=== PATIENT | male | born 1990 | race Caucasian/White ===

== ENCOUNTER 2018-03-02 22:33 | Emergency (ER) | payer SELFPAY ==
[2018-03-02] MEDS ORDERED: OMEP-125 PO (22:49)
[2018-03-02] MEDS ORDERED: LORA-799 PO (22:49)
--- NOTE | 2018-03-02 22:55 | ER Report ---
History and Physical Time Seen By MD: 22:55 Hx. of Stated Complaint: jhonny has had a cough for over a month, patient states has a neb he uses just to help so he can sleep. patient states coughing up blood. HPI/ROS CHIEF COMPLAINT: Cough, hemoptysis HISTORY OF PRESENT ILLNESS: 27-year-old male with a history of asthma, has been sick for several weeks. He's been having a productive cough of colored sputum and increased coughing and shortness of breath. He's been using his nebulizer frequently without improvement. He's been running some fever and chills. He also notes some hemoptysis, coughing up spots of blood. Patient to nonsmoker. Patient denies leg swelling or calf pain. Patient denies history of DVT or PE REVIEW OF SYSTEMS: Respiratory: As above Cardiovascular: No chest pain, no palpitations. Gastrointestinal: No vomiting, no abdominal pain. Musculoskeletal: No back pain. Allergies: Coded Allergies: amoxicillin (Verified Allergy, Intermediate, rash/hives, 03/02/18) animal dander (Verified Allergy, Intermediate, 03/02/18) Uncoded Allergies: dust (Allergy, Intermediate, 03/02/18) Home Meds Active Scripts Albuterol Sulfate (VENTOLIN HFA) 18 Gm Inh, 2 PUFF INH Q4-6H PRN for asthma, #1 INH 1 Refill Prov:IRENE NIEVES DO 03/02/18 Guaifenesin/Codeine Phosphate (GUAIFENESIN-CODEINE SYRUP) 10 Ml Liquid, 5-10 ML PO Q4H PRN for COUGH, #120 Prov:IRENE NIEVES DO 03/02/18 Prednisone (PREDNISONE) 20 Mg Tablet, 40 MG PO QDAY for reduce lung inflammation, #10 Prov:IRENE NIEVES DO 03/02/18 Azithromycin 250 Mg Tab (AZITHROMYCIN 250 MG TAB) 250 Mg Tablet, 0 PO QDAY for infection, #6 TAB TAKE 2 TABLETS ON DAY 1 AND 1 TABLET ON DAYS 2-5 Prov:IRENE NIEVES DO 03/02/18 Reported Medications Loratadine (CLARITIN) 10 Mg Tab.rapdis, 10 MG PO QDAY 03/02/18 Omeprazole (OMEPRAZOLE) 20 Mg Capsule., 1 CAP PO QDAY, CAP 03/02/18 Past Medical/Surgical History Asthma Reviewed Nurses Notes: Yes Old Medical Records Reviewed: Yes Constitutional Vital Sign - Last 24 Hours 03/02/18 03/02/18 03/02/18 03/02/18 22:45 22:48 23:00 23:03 Temp 98.4 Pulse 104 104 105 Resp 24 B/P (MAP) 151/125 125/101 (109) Pulse Ox 94 92 94 O2 Delivery Room Air 03/02/18 03/02/18 03/02/18 23:19 23:30 23:33 Pulse 108 B/P (MAP) 105/67 (80) 115/101 (106) Pulse Ox 92 Physical Exam General Appearance: The patient is alert, has no immediate need for airway protection and no current signs of toxicity.. Vital signs stable, afebrile, normal pulse ox HEENT: Pupils equal and round no injection. TMs normal, oropharynx mild erythema, no exudate Respiratory: Chest is non tender, lungs are clear to auscultation. Cardiac: regular rate and rhythm Gastrointestinal: Abdomen is soft and non tender, no masses, bowel sounds normal. Musculoskeletal: Neck: Neck is supple and non tender. Extremities have full range of motion and are non tender. Skin: No rashes or lesions. DIFFERENTIAL DIAGNOSIS: After history and physical exam differential diagnosis was considered for shortness of breath including but not limited to pulmonary infectious process, COPD, asthma, pulmonary embolus and congestive heart failure. Medical Decision Making EKG/Imaging Imaging X-ray: Two-view chest x-ray was obtained. I viewed the images myself on the PACS system. My interpretation of the images is: No infiltrate, no effusion, normal mediastinum. The radiologist interpretation had no clinically significant variation from this interpretation. ED Course/Re-evaluation ED Course Patient was admitted to an examination room. H&P was done. The differential diagnoses was considered. On clinical examination. Patient has an acute asthma exacerbation. He's been having a productive cough and fevers. He denies hemoptysis. Patient's a nonsmoker. His chest x-rays unremarkable. Patient's dispensed an albuterol inhaler. He is treated with prednisone 60 no grams by mouth. He's given Zithromax 500 mg. Patient advised to follow-up with primary care if unimproved in 3-5 days. Decision to Disposition Date: Mar 02, 2018 Decision to Disposition Time: 23:25 Depart Departure Latest Vital Signs Vital Signs Date Time Temp Pulse Resp B/P (MAP) Pulse Ox O2 Delivery O2 Flow Rate FiO2 03/02/18 23:33 108 92 03/02/18 23:30 115/101 (106) 03/02/18 22:45 98.4 24 Room Air Impression: Primary Impression: Hemoptysis, unspecified Additional Impressions: Bronchitis Asthma exacerbation Condition: Improved Disposition: HOME OR SELF-CARE New Scripts Albuterol Sulfate (VENTOLIN HFA) 18 Gm Inh 2 PUFF INH Q4-6H PRN for asthma, #1 INH 1 Refill Prov: IRENE NIEVES DO 03/02/18 Guaifenesin/Codeine Phosphate (GUAIFENESIN-CODEINE SYRUP) 10 Ml Liquid 5-10 ML PO Q4H PRN for COUGH, #120 Prov: IRENE NIEVES DO 03/02/18 Prednisone (PREDNISONE) 20 Mg Tablet 40 MG PO QDAY for reduce lung inflammation, #10 Prov: IRENE NIEVES DO 03/02/18 Azithromycin 250 Mg Tab (AZITHROMYCIN 250 MG TAB) 250 Mg Tablet 0 PO QDAY for infection, #6 TAB TAKE 2 TABLETS ON DAY 1 AND 1 TABLET ON DAYS 2-5 Prov: IRENE NIEVES DO 03/02/18 Patient Instructions: Acute Bronchitis (ED), Asthma (ED) Additional Instructions: Follow-up with primary care if unimproved in 3-5 days Problem Qualifiers Additional Impressions: Asthma exacerbation Asthma severity: mild Asthma persistence: persistent Qualified Codes: J45.31 - Mild persistent asthma with (acute) exacerbation IRENE NIEVES DO Mar 02, 2018 22:55
[2018-03-02] MEDS ORDERED: AZITHROMYCIN 250 MG TAB PO ONE (23:20)
[2018-03-02] MEDS ORDERED: predniSONE 20 MG TAB PO ONE (23:20)
[2018-03-02] MEDS ORDERED: AZIT-18 PO (23:29)
[2018-03-02] MEDS ORDERED: PRED20TA6 PO (23:29)
[2018-03-02] MEDS ORDERED: GUAI10LI4 PO (23:29)
[2018-03-02 23:30] VITALS: BP 115/101
[2018-03-02] MEDS ORDERED: guaiFENesin/CODEINE 5 ML UDBTL PO ONE (23:30)
[2018-03-02] MEDS ORDERED: ALB18R INH (23:34)
[2018-03-02] MEDS ORDERED: ALBUTEROL 8 GM INHALER INH ONE (23:35)
--- NOTE | 2018-03-02 23:46 | RADIOLOGY IMAGING REPORT ---
FACILITY: [facility] PATIENT NAME: Jose Medel : 1990 MR: [id number] V: [id number] EXAM DATE: ORDERING PHYSICIAN: IRENE NIEVES TECHNOLOG[place]: [place] [facility] [place] Jose Med[place] : 1990 Visit/Account:[id number] Date of Sevice: 03/02/2018 CHEST: Indication: Cough and dyspnea. Technique: Frontal and lateral views were obtained. Comparison: None. Skeletal and soft tissue structures: Intact and unremarkable. Heart and mediastinum: Within normal limits. Lung varner: Well-expanded and clear. Pleural spaces: Unremarkable. Impression: No acute process. Report Dictated By: Jose Cobos MD at 03/02/2018 11:38 PM Report E-Signed By: Jose Cobos MD at 03/02/2018 11:42 PM WSN:[id number]
== END 2018-03-02 23:44 | disposition home or self-care (01) ==
LOC: ER 23:37
DX: R04.2 Hemoptysis (principal); J40 Bronchitis, not specified as acute or chronic; J45.31 Mild persistent asthma with (acute) exacerbation
CPT/HCPCS: 71046; 99283; J3535; J7512; Q0144

== ENCOUNTER 2018-09-22 18:49 | Emergency (ER) | payer SELFPAY ==
[~2018-09-22 18:49] MED LIST: ALB18R INH; AZIT-18 PO; GUAI10LI4 PO; LORA-799 PO; OMEP-125 PO; PRED20TA6 PO
[2018-09-22] MEDS ORDERED: DULERAPT INH (19:00)
--- NOTE | 2018-09-22 19:00 | ER Report ---
History and Physical Time Seen By MD: 19:00 Hx. of Stated Complaint: PATIENT STATES HE HAS BEEN SICK FOR A COUPLE WEEKS, WITH A COUGH, AND CONGESTION, BUT NOW HE IS REALLY SHORT OF BREATH, HAS ASTHMA, HAS BEEN USING INHALERS AND NEBS AT HOME WITH NO IMPROVEMENT. HPI/ROS CHIEF COMPLAINT: short of breath HISTORY OF PRESENT ILLNESS: This is a 27 year old male. He has asthma, on nebulizers, albuterol inhaler, and Dulera inhaler. He has been sick with congestion and cough for the last few weeks now. Has increased use of albuterol, and does help temporarily, but breathing seems to be worsening. Cough is productive of sputum, yellow colored. Nasal congestion as well as chest. Having fevers/chills. No chest pain, but feels tight with the breathing, Wheezing. Allergies: Coded Allergies: amoxicillin (Verified Allergy, Intermediate, rash/hives, 09/22/18) animal dander (Verified Allergy, Intermediate, 09/22/18) Uncoded Allergies: dust (Allergy, Intermediate, 03/02/18) Home Meds Active Scripts Prednisone (PREDNISONE) 20 Mg Tablet, 20 MG PO DIRECTED, #26 TAB 0 Refills Take 3 tablets once a day for 4 days, then take 2 tablets once a day for 4 days, then take 1 tablet once a day for 4 days, then take 1/2 tablet once a day for 4 days, then stop. Prov:LINWOOD GOLDBERG MD 09/22/18 Azithromycin (ZITHROMAX) 250 Mg Tablet, 1 TAB PO QDAY for 4 Days, #4 TAB 0 Refills Prov:LINWOOD GOLDBERG MD 09/22/18 Prednisone (PREDNISONE) 20 Mg Tablet, 60 MG PO QDAY, #12 TAB Prov:LINWOOD GOLDBERG MD 09/22/18 Albuterol Sulfate (VENTOLIN HFA) 18 Gm Inh, 2 PUFF INH Q4-6H PRN for asthma, #1 INH 1 Refill Prov:IRENE NIEVES DO 03/02/18 Reported Medications Mometasone/Formoterol (DULERA 200 MCG/5 MCG INHALER) 13 Gm Inh, 1 PUFF INH BID, INH 09/22/18 Loratadine (CLARITIN) 10 Mg Tab.rapdis, 10 MG PO QDAY 03/02/18 Omeprazole (OMEPRAZOLE) 20 Mg Capsule.dr, 1 CAP PO QDAY, CAP 03/02/18 Discontinued Scripts Guaifenesin/Codeine Phosphate (GUAIFENESIN-CODEINE SYRUP) 10 Ml Liquid, 5-10 ML PO Q4H PRN for COUGH, #120 Prov:IRENE NIEVES DO 03/02/18 Prednisone (PREDNISONE) 20 Mg Tablet, 40 MG PO QDAY for reduce lung inflammation, #10 Prov:IRENE NIEVES DO 03/02/18 Azithromycin 250 Mg Tab (AZITHROMYCIN 250 MG TAB) 250 Mg Tablet, 0 PO QDAY for infection, #6 TAB TAKE 2 TABLETS ON DAY 1 AND 1 TABLET ON DAYS 2-5 Prov:IRENE NIEVES DO 03/02/18 Reviewed Nurses Notes: Yes Constitutional Vital Sign - Last 24 Hours 09/22/18 09/22/18 09/22/18 09/22/18 18:56 19:20 19:20 19:25 Temp 99.2 Pulse 107 90 90 Resp 24 16 16 B/P (MAP) 121/84 Pulse Ox 91 91 O2 Delivery Room Air Room Air 09/22/18 09/22/18 09/22/18 20:20 20:20 21:02 Pulse 82 80 Resp 16 16 Pulse Ox 92 O2 Delivery Room Air Physical Exam General Appearance: The patient is alert. Having some distress due to shortness of breath, but no respiratory failure. Eyes: Pupils are equal, round. No pallor, injection or icterus. ENT: Mucous membranes are moist. Normal oral mucosa. Posterior oropharynx is normal. Normal tympanic membranes and canals. Neck: Supple and non tender. No lymphadenopathy. Respiratory: Lungs diminished, having wheezing on expiration. There are no retractions or accessory muscle use, but is doing some pursed lip breathing. No rales noted. Rhonchi throughout. Cardiovascular: Regular rate and rhythm. No murmurs, gallops or rubs. No edema. Gastrointestinal: Abdomen is soft and non tender. Nondistended. Neurological: Alert and oriented x3. Skin: Warm and dry. No rashes. Musculoskeletal: No tenderness in palpation of the cervical, thoracic and lumbar spine. DIFFERENTIAL DIAGNOSIS: After history and physical exam, differential diagnosis was considered for shortness of breath including but not limited to pulmonary infectious process with asthma exacerbation. Medical Decision Making Data Points Result Diagram: 09/22/18190809/22/181908 Laboratory Hematology Test 09/22/18 19:09 Red Blood Count 5.38 M/uL (4.00-5.60) Mean Corpuscular Volume 81.3 fL (80.0-96.0) Mean Corpuscular Hemoglobin 26.6 pg (26.0-33.0) Mean Corpuscular Hemoglobin Concent 32.6 g/dL (32.0-36.0) Red Cell Distribution Width 16.9 % (11.5-14.5) Mean Platelet Volume 7.5 fL (7.2-11.1) Neutrophils (%) (Auto) 69.0 % (39.4-72.5) Lymphocytes (%) (Auto) 18.4 % (17.6-49.6) Monocytes (%) (Auto) 5.8 % (4.1-12.4) Eosinophils (%) (Auto) 6.2 % (0.4-6.7) Basophils (%) (Auto) 0.6 % (0.3-1.4) Nucleated RBC Relative Count (auto) 0.1 /100WBC Neutrophils # (Auto) 10.1 K/uL (2.0-7.4) Lymphocytes # (Auto) 2.7 K/uL (1.3-3.6) Monocytes # (Auto) 0.8 K/uL (0.3-1.0) Eosinophils # (Auto) 0.9 K/uL (0.0-0.5) Basophils # (Auto) 0.1 K/uL (0.0-0.1) Nucleated RBC Absolute Count (auto) 0.01 K/uL Sodium Level 140 mmol/L (137-145) Potassium Level 4.0 mmol/L (3.5-5.0) Chloride Level 105 mmol/L (98-107) Carbon Dioxide Level 27 mmol/L (22-30) Blood Urea Nitrogen 13 mg/dl (9-21) Creatinine 0.70 mg/dl (0.66-1.25) Glomerular Filtration Rate Calc > 60.0 Random Glucose 133 mg/dl (75-110) Lactate 2.3 mmol/L (0.7-2.1) Calcium Level 8.2 mg/dl (8.4-10.2) Total Bilirubin 0.2 mg/dl (0.2-1.3) Aspartate Amino Transf (AST/SGOT) 23 U/L (0-35) Alanine Aminotransferase (ALT/SGPT) 23 U/L (0-56) Alkaline Phosphatase 88 U/L (0-126) Total Protein 7.2 g/dl (6.3-8.2) Albumin 3.6 g/dl (3.5-5.0) Chemistry Test 09/22/18 19:09 White Blood Count 14.7 k/uL (4.5-11.0) Red Blood Count 5.38 M/uL (4.00-5.60) Hemoglobin 14.3 g/dL (14.0-18.0) Hematocrit 43.7 % (42.0-52.0) Mean Corpuscular Volume 81.3 fL (80.0-96.0) Mean Corpuscular Hemoglobin 26.6 pg (26.0-33.0) Mean Corpuscular Hemoglobin Concent 32.6 g/dL (32.0-36.0) Red Cell Distribution Width 16.9 % (11.5-14.5) Platelet Count 395 K/uL (150-450) Mean Platelet Volume 7.5 fL (7.2-11.1) Neutrophils (%) (Auto) 69.0 % (39.4-72.5) Lymphocytes (%) (Auto) 18.4 % (17.6-49.6) Monocytes (%) (Auto) 5.8 % (4.1-12.4) Eosinophils (%) (Auto) 6.2 % (0.4-6.7) Basophils (%) (Auto) 0.6 % (0.3-1.4) Nucleated RBC Relative Count (auto) 0.1 /100WBC Neutrophils # (Auto) 10.1 K/uL (2.0-7.4) Lymphocytes # (Auto) 2.7 K/uL (1.3-3.6) Monocytes # (Auto) 0.8 K/uL (0.3-1.0) Eosinophils # (Auto) 0.9 K/uL (0.0-0.5) Basophils # (Auto) 0.1 K/uL (0.0-0.1) Nucleated RBC Absolute Count (auto) 0.01 K/uL Glomerular Filtration Rate Calc > 60.0 Lactate 2.3 mmol/L (0.7-2.1) Calcium Level 8.2 mg/dl (8.4-10.2) Total Bilirubin 0.2 mg/dl (0.2-1.3) Aspartate Amino Transf (AST/SGOT) 23 U/L (0-35) Alanine Aminotransferase (ALT/SGPT) 23 U/L (0-56) Alkaline Phosphatase 88 U/L (0-126) Total Protein 7.2 g/dl (6.3-8.2) Albumin 3.6 g/dl (3.5-5.0) EKG/Imaging Imaging 2 VIEWS CHEST INDICATION: Cough, asthma, shortness of breath COMPARISON: X-ray examination March 02, 2018 FINDINGS: Heart is within normal limits. No focal infiltrate or consolidation. No effusion or pneumothorax. No acute bony finding. IMPRESSION: 1. No acute cardiopulmonary process. Report Dictated By: Eliu Law MD at 09/22/2018 7:47 PM ED Course/Re-evaluation Clinical Indication for ER IV: Hydration, IV Access ED Course Initially gave DuoNeb treatment with some improvement, wheezing actually increased, but with better air movement. Solu-Medrol 125mg IV. Chest x-ray negative for consolidation. 3 back to back Albuterol nebulizers given, much improved. Continued on Prednisone, Albuterol and Azithromycin at home. Decision to Disposition Date: September 22, 2018 Decision to Disposition Time: 21:33 Depart Departure Latest Vital Signs Vital Signs Date Time Temp Pulse Resp B/P (MAP) Pulse Ox O2 Delivery O2 Flow Rate FiO2 09/22/18 21:02 80 16 09/22/18 20:20 92 Room Air 09/22/18 18:56 99.2 121/84 Impression: Primary Impression: Asthma exacerbation Additional Impression: Bronchitis Condition: Improved Disposition: HOME OR SELF-CARE New Scripts Prednisone (PREDNISONE) 20 Mg Tablet 20 MG PO DIRECTED, #26 TAB 0 Refills Take 3 tablets once a day for 4 days, then take 2 tablets once a day for 4 days, then take 1 tablet once a day for 4 days, then take 1/2 tablet once a day for 4 days, then stop. Prov: LINWOOD GOLDBERG MD 09/22/18 Azithromycin (ZITHROMAX) 250 Mg Tablet 1 TAB PO QDAY for 4 Days, #4 TAB 0 Refills Prov: LINWOOD GOLDBERG MD 09/22/18 Prednisone (PREDNISONE) 20 Mg Tablet 60 MG PO QDAY, #12 TAB Prov: LINWOOD GOLDBERG MD 09/22/18 Patient Instructions: Asthma (ED) Additional Instructions: Keep using your nebulizer treatments. You can use the albuterol every 2-3 hours as needed. Take Prednisone 20mg tablets, 3 tablets once a day for 4 more days then stop. If symptoms worsen again after stopping the Prednisone, we will have you fill a second prescription for a tapering dose of steroids over the next few weeks. Take Azithromycin 250mg once a day for 4 more days. Problem Qualifiers Primary Impression: Asthma exacerbation Asthma severity: moderate Asthma persistence: persistent Qualified Codes: J45.41 - Moderate persistent asthma with (acute) exacerbation LINWODO GOLDBERG MD September 22, 2018 19:00
[2018-09-22] MEDS ORDERED: ALBUTEROL/IPRATROPIUM 3 ML NEB NEB ONE (19:15)
[2018-09-22] MEDS ORDERED: methylPREDNIS SUCC 125 MG/2ML IVP ONE (19:15)
[2018-09-22 19:32] LABS: PLATELET COUNT, AUTOMATED 395 K/uL (150-450)
--- NOTE | 2018-09-22 19:52 | RADIOLOGY IMAGING REPORT ---
FACILITY: [facility] PATIENT NAME: Jose Medel : 1990 MR: [id number] V: [id number] EXAM DATE: ORDERING PHYSICIAN: LINWOOD GOLDBERG TECHNOLOGIST: Location: [facility] - [place], [place] Patient: Jose Medel : 1990 Visit/Account:[id number] Date of Sevice: 09/22/2018 2 VIEWS CHEST INDICATION: Cough, asthma, shortness of breath COMPARISON: X-ray examination March 02, 2018 FINDINGS: Heart is within normal limits. No focal infiltrate or consolidation. No effusion or pneumothorax. No acute bony finding. IMPRESSION: 1. No acute cardiopulmonary process. Report Dictated By: Eliu Law MD at 09/22/2018 7:47 PM Report E-Signed By: Eliu Law MD at 09/22/2018 7:48 PM [id number]
[2018-09-22] MEDS ORDERED: ALBUTEROL 2.5 MG/0.5ML ER ONLY NEB ONE (20:20)
[2018-09-22 21:30] VITALS: BP 123/73
[2018-09-22] MEDS ORDERED: predniSONE 20 MG TAB PO ONE (21:35)
[2018-09-22] MEDS ORDERED: AZITHROMYCIN 250 MG TAB PO ONE (21:35)
[2018-09-22] MEDS ORDERED: PRED20TA6 PO ×2 (21:36→21:37)
[2018-09-22] MEDS ORDERED: AZIT-1 PO (21:36)
== END 2018-09-22 22:02 | disposition home or self-care (01) ==
LOC: ER 19:13
DX: J45.41 Moderate persistent asthma with (acute) exacerbation (principal); J40 Bronchitis, not specified as acute or chronic
CPT/HCPCS: 71046; 83605; 85025; 94640; 96374; 99283; J2930; J7512; J7611; J7620; Q0144; 82040; 82247; 82310; 82374; 82435; 82565; 82947; 84075; 84132; 84155; 84295; 84450; 84460; 84520